=== PATIENT | male | born 1960 | race American Indian/Alaskan Native ===

== ENCOUNTER 2021-02-22 00:51 | Emergency (ER) | payer MEDICARE ==
[2021-02-22] MEDS ORDERED: oxyCODONE /ACETAMINOPHEN 5-325MG TAB PO ONE (02:46)
[2021-02-22] MEDS ORDERED: SODIUM CHLORIDE 0.9% 1000 ML 1,000 ML IV ONE ×2 (02:46→08:00)
[2021-02-22] MEDS ORDERED: ONDANSETRON 4 MG ODT TAB PO ONE (02:46)
[2021-02-22] MEDS ORDERED: VANCOMYCIN/NS 1 GM/250 ML 1 GM/250 ML BAG IV ONE (02:47)
[2021-02-22] MEDS ORDERED: IBUPROFEN 600 MG TAB PO ONE (02:48)
--- NOTE | 2021-02-22 02:50 | Event Note ---
ED Screening Note Date of service: 02/22/21 Time: 02:49 ED Screening Note: Patient is a 60-year-old -[place] male with no past medical history except chronic osteoarthritis and s/p left total knee replacement 3 weeks ago presents to the ED with complaint of acute onset persistent painful swollen or pain left knee surgical wound with thick purulent discharge for the last 2 weeks, worse in the last 3 days. Patient states that he is unable to bear weight on the left leg because of worsening pain in the left knee with purulent discharge. Patient also complains of fever, chills, lack of appetite and generalized weakness. Patient denies dizziness, syncope, traumatic injury, fall, abdominal pain, numbness and tingling or weakness of lower extremities bilaterally, chest pain or shortness of breath. This initial assessment/diagnostic orders/clinical plan/treatment(s) is/are subject to change based on patients health status, clinical progression and re- assessment by fellow clinical providers in the ED. Further treatment and workup at subsequent clinical providers discretion. Patient/guardian urged not to elope from the ED as their condition may be serious if not clinically assessed and managed. Initial orders include: CBC, CMP, blood culture, lactic acid, sed rate, left knee x-ray
--- NOTE | 2021-02-22 03:18 | XRay Report ---
Left knee 3 views INDICATION: Infection FINDINGS: Postoperative change left knee arthroplasty. Diffuse edema seen in the anterior knee soft t issues with joint effusion is identified. No definite evidence for hardware failure. IMPRESSION: Diffuse edema in the soft tissues and anterior knee joint effusion. Soft tissue infection cannot be e xcluded. No bony destructive change at this time. Clinical correlation. Signer Name: Ayush Green MD Signed: 02/22/2021 3:14 AM Workstation Name: [id number]
[2021-02-22 03:40] LABS: Alanine Aminotransferase 6 units/L (7-56); Albumin 3.9 g/dL (3.9-5); Blood Urea Nitrogen 7 mg/dL (9-20); Calcium 9.4 mg/dL (8.4-10.2); Hemolysis Index 2
[2021-02-22 03:51] LABS: BUN/Creatinine Ratio 14
[2021-02-22 04:12] LABS: Basophils # (Auto) 0.1 K/mm3 (0.0-0.1); Basophils % (Auto) 0.7 % (0.0-1.8); Eosinophils % (Auto) 0.6 % (0.0-4.3); Hematocrit 38.6 % (35.5-45.6); Hemoglobin 13.4 gm/dl (11.8-15.2); Lymphocytes # (Auto) 0.6 K/mm3 (1.2-5.4); Lymphocytes % (Auto) 7.2 % (13.4-35.0); Mean Corpuscular HGB Conc 35 % (32-34); Mean Corpuscular Volume 98 fl (84-94); Monocytes # (Auto) 0.9 K/mm3 (0.0-0.8); Monocytes % (Auto) 10.7 % (0.0-7.3); Platelet Count 331 K/mm3 (140-440); Red Blood Count 3.94 M/mm3 (3.65-5.03); Red Cell Distribution Width 15.3 % (13.2-15.2)
[2021-02-22 04:51] LABS: Erythrocyte Sedimentation Rate 71 mm/Hr (0-20)
[2021-02-22] MEDS ORDERED: cephALEXin 500 MG CAP PO ONE (06:40)
--- NOTE | 2021-02-22 06:49 | Emergency Department Report ---
- General Chief Complaint: Wound/Laceration Stated Complaint: INFECTION IN LEG Time Seen by Provider: 02/22/21 06:33 Source: patient Mode of arrival: Ambulatory Limitations: No Limitations - History of Present Illness Initial Comments: CC; My knee hurts. HPI: This is a 60 yo male with hx of tobacco dependence who presents with left knee pain and drainage for several days. Patient underwent left total knee replacement on January 26 at an [facility] in [place], [place]. Orthopedic Surgeon Dr. Timothy Mckeon. Patient has been followed on a weekly basis due to wound dehiscenced. No antibiotics given. Patient instructed to change dressing often. No new trauma. -: Gradual, days(s) (several days) Extremity Location: Left: Knee Place: home Associated Symptoms: other (wound purulence) - Related Data Previous Rx's Medication Instructions Recorded Last Taken Type cephALEXin [Keflex] 500 mg PO Q6HR 7 Days #28 capsule 02/22/21 Unknown Rx oxyCODONE /ACETAMINOPHEN [Percocet 1 tab PO Q6HR PRN #15 tab 02/22/21 Unknown Rx 5/325] Allergies Allergy/AdvReac Type Severity Reaction Status Date / Time No Known Allergies Allergy Unverified 02/22/21 02:42 ED Review of Systems ROS: Stated complaint: INFECTION IN LEG Other details as noted in HPI Comment: All other systems reviewed and negative Constitutional: denies: chills, fever, malaise Respiratory: denies: cough, shortness of breath Gastrointestinal: denies: abdominal pain, nausea, vomiting Skin: rash, lesions ED Past Medical Hx - Past Medical History Previous Medical History?: No - Surgical History Past Surgical History?: No - Family History Family history: hypertension - Social History Smoking Status: Current Every Day Smoker Substance Use Type: None - Medications Home Medications: Home Medications Medication Instructions Recorded Confirmed Last Taken Type cephALEXin [Keflex] 500 mg PO Q6HR 7 Days #28 capsule 02/22/21 Unknown Rx oxyCODONE /ACETAMINOPHEN [Percocet 1 tab PO Q6HR PRN #15 tab 02/22/21 Unknown Rx 5/325] ED Physical Exam - General Limitations: No Limitations General appearance: alert, in no apparent distress - Head Head exam: Present: atraumatic, normocephalic - Eye Eye exam: Present: normal appearance - ENT ENT exam: Present: mucous membranes moist - Neck Neck exam: Present: normal inspection - Respiratory Respiratory exam: Present: normal lung sounds bilaterally. Absent: respiratory distress, wheezes, rales, rhonchi - Cardiovascular Cardiovascular Exam: Present: regular rate, normal rhythm, normal heart sounds. Absent: systolic murmur, diastolic murmur, rubs, gallop - GI/Abdominal GI/Abdominal exam: Present: soft, normal bowel sounds. Absent: distended, tenderness, guarding, rebound - Extremities Exam Extremities exam: Present: other (left knee: large central eschar with purulence drainage, wound dehiscence presence) - Back Exam Back exam: Present: normal inspection - Neurological Exam Neurological exam: Present: alert, oriented X3 - Psychiatric Psychiatric exam: Present: normal affect, normal mood - Skin Skin exam: Present: warm, dry, intact, normal color. Absent: rash ED Course Vital Signs 02/22/21 02:38 Temperature 100.0 F H Pulse Rate 101 H Respiratory 18 Rate Blood Pressure 133/82 O2 Sat by Pulse 97 Oximetry ED Medical Decision Making - Lab Data Result diagrams: 02/22/21 02:54 02/22/21 02:54 Laboratory Results - last 24 hr 02/22/21 02/22/21 02/22/21 02:54 02:54 02:54 WBC 8.9 RBC 3.94 Hgb 13.4 Hct 38.6 MCV 98 H MCH 34 H MCHC 35 H RDW 15.3 H Plt Count 331 Lymph % (Auto) 7.2 L [place] % (Auto) 10.7 H Eos % (Auto) 0.6 Baso % (Auto) 0.7 Lymph # (Auto) 0.6 L [place] # (Auto) 0.9 H Eos # (Auto) 0.0 Baso # (Auto) 0.1 Seg Neutrophils % 80.8 H Seg Neutrophils # 7.2 ESR 71 Sodium 132 L Potassium 4.3 Chloride 94.0 L Carbon Dioxide 23 Anion Gap 19 BUN 7 L Creatinine 0.5 L Estimated GFR > 60 BUN/Creatinine Ratio 14 Glucose 93 Lactic Acid 1.30 Calcium 9.4 Total Bilirubin 1.40 H AST 10 ALT 6 L Alkaline Phosphatase 89 Total Protein 7.5 Albumin 3.9 Albumin/Globulin Ratio 1.1 - Radiology Data Radiology results: report reviewed Patient Name: JAYLNE LOWE Gender: Male Date of : 1960 Home Phone: Referring Provider: LUIS ALBERTO SILVA Organization: [facility] Accession Number: [id number] Requested Date: February 22, 2021 02:44 Report Status: Final Requested Procedure: 1 Procedure Description: XR knee 3V LT Modality: XR Findings Reporting MD: Ayush Green Dictation Time: February 22, 2021 02:14 Medical Director: Not available Fitness/Wellness Director Date: Left knee 3 views INDICATION: Infection FINDINGS: Postoperative change left knee arthroplasty. Diffuse edema seen in the anterior knee soft tissues with joint effusion is identified. No definite evidence for hardware failure. IMPRESSION: Diffuse edema in the soft tissues and anterior knee joint effusion. Soft tissue infection cannot be excluded. No bony destructive change at this time. Clinical correlation. Signer Name: Ayush Green MD Signed: 02/22/2021 2:14 AM Workstation Name: [email or web address] - Medical Decision Making Postoperative wound infection with dehiscence, patient given Keflex, dressing change performed emergency department. Prescribed Keflex and Percocet. Patient has follow-up with personal surgeon tomorrow. I encouraged the patient to contact his surgeon today. Patient is discharged home. CBC chemistry within normal limits. Knee radiographs reflective of known infection Critical care attestation.: If time is entered above; I have spent that time in minutes in the direct care of this critically ill patient, excluding procedure time. ED Disposition Clinical Impression: Postoperative wound infection, Wound dehiscence, Status post total knee replace ment, left Disposition: DC-01 TO HOME OR SELFCARE Is pt being admited?: No Does the pt Need Aspirin: No Condition: Stable Instructions: Wound Infection, [id number]-vr-Dope, Wound Dehiscence Additional Instructions: Please contact your personal orthopedic surgeon today. Prescriptions: cephALEXin [Keflex] 500 mg PO Q6HR 7 Days #28 capsule oxyCODONE /ACETAMINOPHEN [Percocet 5/325] 1 tab PO Q6HR PRN #15 tab PRN Reason: Pain , Severe (7-10)
[2021-02-22] MEDS ORDERED: cephALEXin 500 MG CAP PO SCH (07:15)
[2021-02-22] MEDS ORDERED: IBUPROFEN 600 MG TAB PO SCH (07:15)
[2021-02-22] MEDS ORDERED: oxyCODONE /ACETAMINOPHEN 5-325MG TAB PO SCH (07:15)
[2021-02-22] MEDS ORDERED: ONDANSETRON 4 MG ODT TAB PO SCH (07:15)
[2021-02-22] MEDS ORDERED: VANCOMYCIN 1,250 MG in SODIUM CHLORIDE 0.9% 250ML 250 ML IV ONE (08:00)
[2021-02-22 08:53] VITALS: BP 128/86
== END 2021-02-22 08:00 | disposition home or self-care (01) ==
LOC: ED 00:51
DX: T81.30XA Disruption of wound, unspecified, initial encounter (principal); M96.89 Other intraoperative and postprocedural complications and disorders of the musculoskeletal system; Z96.651 Presence of right artificial knee joint; F17.200 Nicotine dependence, unspecified, uncomplicated; Z79.899 Other long term (current) drug therapy; Y83.8 Other surgical procedures as the cause of abnormal reaction of the patient, or of later complication, without mention of misadventure at the time of the procedure; Y92.89 Other specified places as the place of occurrence of the external cause
CPT/HCPCS: 36415; 80053; 82140; 85025; 85652; 99284; J3370; J7050; Q0162